=== PATIENT | female | born 1985 | race American Indian/Alaskan Native ===

== ENCOUNTER 2016-12-28 00:25 | Emergency (ER) | payer MEDICAID ==
[2016-12-28] MEDS ORDERED: LACTATED RINGERS 500 ML IV ONE (01:15)
--- NOTE | 2016-12-28 05:11 | XRay Report ---
FINAL REPORT EXAM: XR KNEE 3V RT HISTORY: fall pain TECHNIQUE: AP, oblique and lateral views of the right knee PRIORS: None. FINDINGS: No acute fracture or dislocation is seen. The soft tissues are unremarkable with no evidence for suprapatellar joint effusion. Joint spaces are maintained and bony mineralization is normal. Spurring off the medial knee joint, tibial spine, and posterior patella is noted. IMPRESSION: No acute abnormality of the right knee.
--- NOTE | 2016-12-28 05:12 | XRay Report ---
FINAL REPORT EXAM: XR WRIST 2V RT HISTORY: pain in the right wrist TECHNIQUE: AP and lateral views of the right wrist PRIORS: None. FINDINGS: No evidence of acute fracture or dislocation is seen. The soft tissues are unremarkable with no soft tissue swelling or radiopaque foreign bodies. Joint spaces are maintained. IMPRESSION: No acute soft tissue or bony abnormality identified.
--- NOTE | 2016-12-28 05:51 | Emergency Department Report ---
HPI - General Chief Complaint: Fall Time Seen by Provider: 12/28/16 05:43 - HPI HPI: She is a 31-year-old female at approximately 20 weeks gestation who presents to ED complaining of fall earlier today. Patient states she was at [facility] when she slipped on a T-shirt that was on the floor and fell and landed on her right knee patient states she shredded catchers break her fall with her hands and developed her wrist pain. She denies loss of sensation on wrist or knee. She states moving the knee or the wrist makes pain worse. She describes pain as throbbing in nature constant localized to the knee and wrist. She denies cough pain Patient denies any vaginal bleeding or leaking of fluids. Patient has been slipping and delivery and was cleared. She denies fevers/chills/nausea/vomiting/abdominal pain/shortness of breath. ED Past Medical Hx - Past Medical History Previous Medical History?: Yes Hx Hypertension: No Hx Diabetes: No Hx Deep Vein Thrombosis: No Hx Renal Disease: No Hx Sickle Cell Disease: No Hx Seizures: No Hx Asthma: No Additional medical history: anemia, - Surgical History Past Surgical History?: No - Social History Smoking Status: Never Smoker - Medications Home Medications: Home Medications Medication Instructions Recorded Confirmed Last Taken Type Ibuprofen [Motrin] 800 mg PO Q8HR PRN #20 tablet 05/12/16 Unknown Rx Acetaminophen [Tylenol] 500 mg PO Q6HR #30 tablet 09/20/16 Unknown Rx Doxylamine/Pyridoxine HCl 2 each PO QHS #20 tablet. 09/20/16 Unknown Rx [Rafia Wheeler 10-10 mg Tablet] Pnv with Ca,No.72/Iron/FA 1 each PO DAILY #30 tablet 09/20/16 Unknown Rx [ Plus Tablet] Acetaminophen [Acetaminophen ER 650 mg PO Q8HR PRN #30 tablet.er 12/28/16 Unknown Rx TAB] ED Review of Systems ROS: Stated complaint: RT LEG AND WRIST PAIN Other details as noted in HPI Constitutional: denies: chills, fever Eyes: denies: eye pain, eye discharge, vision change ENT: denies: ear pain, throat pain Respiratory: denies: cough, shortness of breath, wheezing Cardiovascular: denies: chest pain, palpitations Endocrine: no symptoms reported Gastrointestinal: denies: abdominal pain, nausea, vomiting, diarrhea, hematochezia Genitourinary: denies: urgency, dysuria, discharge Musculoskeletal: denies: back pain, joint swelling, arthralgia Skin: denies: rash, lesions Neurological: denies: headache, weakness, numbness, paresthesias, abnormal gait Psychiatric: denies: anxiety, depression Hematological/Lymphatic: denies: easy bleeding, easy bruising Physical Exam - Physical Exam Vital Signs: Vital Signs 12/27/16 23:15 Temperature 98.3 F Pulse Rate 93 H Respiratory 20 Rate Blood Pressure 109/61 [Right] O2 Sat by Pulse 100 Oximetry Physical Exam: GENERAL: Alert and oriented x3, no apparent distress, Normal Gait, atraumatic. HEAD: Head is normocephalic and a-traumatic. Tender to palpation EYES: Extra ocular muscles are intact. Pupils are equal, round, and reactive to light and accommodation. EARS: symetrical, atraumatic, non tender, ear canal clear and moderate cerumen, tympanic membrance non inflamed. gross auditory nml bilaterally. NOSE: Nose symetrical, Nontender,Nares appeared normal. MOUTH:Mouth is well hydrated and without lesions. Patent airways. NECK: Supple. Non edematous, No carotid bruits. No lymphadenopathy or thyromegaly. LUNGS: Symetrical with respiration, No wheezing, no rales or crackles, CTAB. HEART: S1, S2 present, regular rate and rhythm without murmur, no rubs, no gallops. ABDOMEN: Gravid uterus was noted,Positive bowel sounds, soft, and non- distended. . Nontender to palpation on all Quadrants, NO CVA tenderness. EXTREMITIES/MUSCULOSKELETAL: No cyanosis, clubbing, rash, lesions or edema. Full ROM bilaterally. UE/LE Pulses 2+ bilaterally. LE and UE 5+ strength bilaterally. Tenderness to palpation of the wrist joint. Tenderness to palpation of the right knee. No calf tenderness bilaterally NEUROLOGIC: No focal Deficit, Cranial nerves II through XII are grossly intact. No loss of sensation, PSYCHIATRIC: Mood is congruent with affect, denies suicidal or homicidal ideations. SKIN: Warm and dry, No lesions, No ulceration or induration present. ED Course Vital Signs 12/27/16 23:15 Temperature 98.3 F Pulse Rate 93 H Respiratory 20 Rate Blood Pressure 109/61 [Right] O2 Sat by Pulse 100 Oximetry ED Medical Decision Making - Radiology Data Radiology results: report reviewed, image reviewed FINAL REPORT EXAM: XR KNEE 3V RT HISTORY: fall pain TECHNIQUE: AP, oblique and lateral views of the right knee PRIORS: None. FINDINGS: No acute fracture or dislocation is seen. The soft tissues are unremarkable with no evidence for suprapatellar joint effusion. Joint spaces are maintained and bony mineralization is normal. Spurring off the medial knee joint, tibial spine, and posterior patella is noted. IMPRESSION: No acute abnormality of the right knee. Transcribed By: [facility] Dictated By: ALONDRA CEBALLOS MD Electronically Authenticated By: ALONDRA CEBALLOS MD Signed Date/Time: 12/28/16 0508 FINAL REPORT EXAM: XR WRIST 2V RT HISTORY: pain in the right wrist TECHNIQUE: AP and lateral views of the right wrist PRIORS: None. FINDINGS: No evidence of acute fracture or dislocation is seen. The soft tissues are unremarkable with no soft tissue swelling or radiopaque foreign bodies. Joint spaces are maintained. IMPRESSION: No acute soft tissue or bony abnormality identified. Transcribed By: [facility] Dictated By: ALONDRA CEBALLOS MD Electronically Authenticated By: ALONDRA CEBALLOS MD Signed Date/Time: 12/28/16 0510 - Medical Decision Making 31-year-old female presents to the status post fall ED course: Patient was seen over in labor and delivery and was cleared. Wrist and knee x-ray ordered. Knee and wrist x-ray shows: See above normal x- rays ultrasound: Completed and normal Discussed the patient in follow-up with [employer]. Discussed to take Tylenol when necessary for pain. Discussed heating pads to knee and wrist. Discussed wrist immobilizer for wrist and to wear most times in a day. Discussed Rudy wrap. Discussed ice knee and raise daily. Discussed case worsening symptoms or new symptoms arise or return to ED Critical care attestation.: If time is entered above; I have spent that time in minutes in the direct care of this critically ill patient, excluding procedure time. ED Disposition Clinical Impression: Fall Qualifiers: Encounter type: initial encounter Qualified Code(s): W19.XXXA - Unspecified fall, initial encounter Knee strain Qualifiers: Encounter type: initial encounter Laterality: right Qualified Code(s): S86.911A - Strain of unspecified muscle(s) and tendon(s) at lower leg level, right leg, initial encounter Wrist strain Qualifiers: Encounter type: initial encounter Laterality: right Qualified Code(s): S66.911A - Strain of unspecified muscle, fascia and tendon at wrist and hand level, right hand, initial encounter Disposition: DISCHARGED TO HOME OR SELFCARE Is pt being admited?: No Does the pt Need Aspirin: No Condition: Stable Instructions: Labor (DC), Movement (DC) Additional Instructions: PLEASE KEEP NEXT APPOINTMENT OR CALL OFFICE WITH ANY ADDITIONAL CONCERNS OR QUESTIONS. PLEASE MONITOR YOUR BABY'S MOVEMENT (10 KICK OR MOVEMENTS IN A 2 HOUR PERIOD DAILY). DRINK PLENTY OF WATER DAILY ( UP TO A GALLON OF WATER IS SUGGESTED). Take medication as prescribed. Prescriptions: Acetaminophen [Acetaminophen ER TAB] 650 mg PO Q8HR PRN #30 tablet.er PRN Reason: Pain Referrals: PRIMARY CARE,MD [Primary Care Provider] - 3-5 Days Forms: [facility] Discharge Summary, Work/School Release Form(ED) Time of Disposition: 06:17
[2016-12-28] MEDS ORDERED: TYLENOL PO ONE (06:11)
[2016-12-28 06:42] VITALS: BP 111/69
--- NOTE | 2016-12-28 08:19 | Ultrasound Report ---
OB LIMITED INDICATION: Evaluate for placental abruption. COMPARISON: 09/30/2016 TECHNIQUE: Transabdominal grayscale ultrasound with Doppler interrogation. Gestation: Prakash Position: Breech Placenta: Posterior; no evidence of abruption. Placental Grade: 0 Heart Rate: 137 BPM
== END 2016-12-28 06:40 | disposition home or self-care (01) ==
LOC: ED 00:25 → TRG 00:25 → ED 06:40
DX: O9A.212 Injury, poisoning and certain other consequences of external causes complicating pregnancy, second trimester (principal); S66.911A Strain of unspecified muscle, fascia and tendon at wrist and hand level, right hand, initial encounter; S86.911A Strain of unspecified muscle(s) and tendon(s) at lower leg level, right leg, initial encounter; W18.30XA Fall on same level, unspecified, initial encounter; Y93.9 Activity, unspecified; Y92.9 Unspecified place or not applicable; Y99.9 Unspecified external cause status
CPT/HCPCS: 51701; 76815

== ENCOUNTER 2017-04-06 10:07 | Outpatient (CLI) | payer MEDICAID ==
[2017-04-06 10:37] VITALS: BP 112/68
[2017-04-06] MEDS ORDERED: LACTATED RINGERS 500 ML IV ONE (10:38)
[2017-04-06 11:05] LABS: Bilirubin,Urine NEG (Negative); Blood,Urine NEG (Negative); Ketones,Urine NEG (Negative); Leukocyte Esterase,Urine NEG (Negative); Mucus,Urine FEW /HPF; Nitrite,Urine NEG (Negative); Protein,Urine <15 mg/dL mg/dL (Negative); Urobilinogen,Urine < 2.0 mg/dL (<2.0)
== END 2017-04-06 12:04 | disposition home or self-care (01) ==
LOC: TRG 10:07
PROVIDERS: ATTEND Obstetrics & Gynecology
DX: Z34.93 Encounter for supervision of normal pregnancy, unspecified, third trimester (principal); Z3A.34 34 weeks gestation of pregnancy
CPT/HCPCS: 59025; 81001

== ENCOUNTER 2017-05-02 20:11 | Outpatient (CLI) | payer MEDICAID ==
[2017-05-02 20:54] VITALS: BP 140/67
[2017-05-02 21:23] LABS: Bilirubin,Urine NEG (Negative); Blood,Urine NEG (Negative); Ketones,Urine NEG (Negative); Leukocyte Esterase,Urine NEG (Negative); Nitrite,Urine NEG (Negative); Protein,Urine <15 mg/dL mg/dL (Negative); Urobilinogen,Urine < 2.0 mg/dL (<2.0); WBC,Urine < 1.0 /HPF (0.0-6.0)
[2017-05-02 22:24] LABS: Hemoglobin 12.1 gm/dl (10.1-14.3); Mean Corpuscular HGB Conc 34 % (30-34); Mean Corpuscular Hemoglobin 33 pg (28-32); Mean Corpuscular Volume 98 fl (79-97); Platelet Count 236 K/mm3 (140-440); Red Blood Count 3.68 M/mm3 (3.65-5.03); Red Cell Distribution Width 13.8 % (13.2-15.2); White Blood Count 10.3 K/mm3 (4.5-11.0)
[2017-05-02 22:34] LABS: Uric Acid 6.9 mg/dL (3.5-7.6)
[2017-05-02] MEDS ORDERED: VISTARIL PO ONE (22:52)
== END 2017-05-02 23:12 | disposition home or self-care (01) ==
LOC: TRG 20:11
PROVIDERS: ATTEND Obstetrics & Gynecology
DX: O47.1 False labor at or after 37 completed weeks of gestation (principal); Z3A.37 37 weeks gestation of pregnancy
CPT/HCPCS: 36415; 81001; 83615; 84450; 84460; 84550; 85027; Q0177